=== PATIENT | female | born 1980 | race Caucasian/White ===

== ENCOUNTER 2022-07-02 11:30 | Emergency (ER) | payer OTHER ==
[~2022-07-02] VITALS: Ht 154.9 cm; Wt 102.5 kg
[2022-07-02 11:45] VITALS: BP 134/76
[2022-07-02 12:02] LABS: BASOPHILS % (AUTO) 1.1 % (0.0-5.0); EOSINOPHILS % (AUTO) 3.3 % (0.0-8.0); HEMATOCRIT 42.6 % (36-48); LYMPHOCYTES % (AUTO) 35.2 % (21.0-51.0); MEAN CORPUSCULAR HEMOGLOBIN 26.9 pg (27.0-33.0); MEAN CORPUSCULAR HGB CONC 32.9 g/dL (32.0-36.0); MEAN CORPUSCULAR VOLUME 81.8 fL (79-99); PLATELET COUNT (AUTO) 369 K/uL (130-400); RED BLOOD CELL COUNT(AUTO) 5.21 MIL/uL (4.00-5.50); RED CELL DISTRIBUTION WIDTH 13.2 % (11.0-15.5); WHITE BLOOD COUNT (AUTO) 8.5 K/uL (4.8-10.8)
[2022-07-02 12:22] LABS: ALBUMIN 3.9 g/dL (3.5-5.0); CREATININE 0.7 mg/dL (0.5-1.5); TOTAL PROTEIN, SERUM 7.7 g/dL (6.0-8.3)
[2022-07-02] MEDS ORDERED: ONDANSETRON 4MG INJ IVP ONE (14:00)
[2022-07-02] MEDS ORDERED: KETOROLAC 30MG VIAL (30MG/ML) IVP ONE (14:00)
[2022-07-02] MEDS ORDERED: ONDANSETRON 4MG INJ ONE (14:16)
[2022-07-02] MEDS ORDERED: KETOROLAC 30MG VIAL (30MG/ML) ONE (14:17)
[2022-07-02 14:18] LABS: APPEARANCE,URINE CLOUDY (CLEAR); BILIRUBIN,URINE NEGATIVE (NEGATIVE); COLOR,URINE YELLOW (YELLOW); GLUCOSE, URINE (UA) NEGATIVE (NEGATIVE); KETONES,URINE NEGATIVE (NEGATIVE); LEUKOCYTE ESTERASE ,URINE NEGATIVE Leu/uL (NEGATIVE); NITRATE,URINE NEGATIVE (NEGATIVE); OCCULT BLOOD,URINE NEGATIVE (NEGATIVE); PROTEIN,URINE NEGATIVE (NEGATIVE); UROBILINOGEN,URINE 0.2 mg/dL (0.2-1.0)
[2022-07-02 14:36] LABS: BACTERIA,URINE FEW /HPF (None Seen); MUCUS,URINE RARE LPF (None Seen); SQUAMOUS EPITHELIAL CELL,UR RARE /HPF (0-2)
[2022-07-02 14:51] LABS: HCG,QUALITATIVE URINE NEGATIVE (NEGATIVE)
[2022-07-02] MEDS ORDERED: DICY20TA2 PO (16:38)
== END 2022-07-02 16:57 | disposition home or self-care (01) ==
LOC: EDH 11:30
DX: R10.9 Unspecified abdominal pain (principal); E66.01 Morbid (severe) obesity due to excess calories; Z68.41 Body mass index [BMI] 40.0-44.9, adult
CPT/HCPCS: 99284; 74176; 96374; 96375; 84484; 80053; 83690; 85025; 81001; 81025; 36415; J2405; J1885

== ENCOUNTER 2024-03-29 16:09 | Emergency (ER) | payer OTHER ==
[~2024-03-29] VITALS: Ht 162.6 cm; Wt 93.4 kg
[~2024-03-29 16:09] MED LIST: DICY20TA2 PO
[2024-03-29] MEDS: 0.9%NACL 1000ML 1,000 ML IV ONE (17:14)
[2024-03-29 17:44] LABS: BASOPHILS # (AUTO) 0.09 K/uL (0.00-0.20); BASOPHILS % (AUTO) 0.8 % (0.0-5.0); EOSINOPHILS # (AUTO) 0.16 K/uL (0.00-0.70); EOSINOPHILS % (AUTO) 1.5 % (0.0-8.0); HEMATOCRIT 40.6 % (36-48); IMMATURE GRANULOCYTE ABSOLUTE 0.03 K/uL (0-1); LYMPHOCYTES % (AUTO) 27.7 % (21.0-51.0); MEAN CORPUSCULAR HEMOGLOBIN 27.6 pg (27.0-33.0); MEAN CORPUSCULAR VOLUME 83.5 fL (79-99); MONOCYTES # (AUTO) 0.7 K/uL (0.1-1.0); MONOCYTES % (AUTO) 6.6 % (3.0-13.0); NEUTROPHILS # (AUTO) 6.9 K/uL (1.8-7.7); NEUTROPHILS % (AUTO) 63.1 % (40.0-77.0); PLATELET COUNT (AUTO) 363 K/uL (130-400); RED BLOOD CELL COUNT(AUTO) 4.86 MIL/uL (4.00-5.50); RED CELL DISTRIBUTION WIDTH 13.2 % (11.0-15.5)
[2024-03-29 17:55] LABS: CREATININE 0.6 mg/dL (0.5-1.0); POTASSIUM 3.7 mmol/L (3.5-5.1)
[2024-03-29 18:01] VITALS: BP 125/86; PULSE 86; RESP 16; O2SAT 99
[2024-03-29 18:40] LABS: INR 0.97 (0.85-1.15); PROTHROMBIN TIME 10.5 SEC (9.6-11.6)
[2024-03-29 18:42] LABS: PARTIAL THROMBOPLASTIN TIME 26.5 SEC (26.3-35.5)
== END 2024-03-29 18:08 | disposition home or self-care (01) ==
LOC: EDH 16:09
DX: N93.8 Other specified abnormal uterine and vaginal bleeding (principal); E28.2 Polycystic ovarian syndrome; E66.9 Obesity, unspecified; D69.6 Thrombocytopenia, unspecified; Z90.89 Acquired absence of other organs; Z98.890 Other specified postprocedural states; Z88.8 Allergy status to other drugs, medicaments and biological substances
CPT/HCPCS: 99284; 96360; 76856; 80048; 84703; 85025; 85610; 85730; 86850; 86900; 86901; 36415; J7030